=== PATIENT | female | born 1990 | race Asian ===

== ENCOUNTER 2017-08-25 18:26 | Emergency (ER) | payer OTHER ==
[2017-08-25] MEDS: ALBUTEROL SULFATE 2.5 MG/0.5 ML INH NEB SOLN NEB (22:02)
== END 2017-08-25 23:03 | disposition home or self-care (01) ==
LOC: M ED 18:26
DX: J06.9 Acute upper respiratory infection, unspecified (principal); Z87.891 Personal history of nicotine dependence
CPT/HCPCS: 71020

== ENCOUNTER 2017-12-22 20:13 | Inpatient (IN) | payer OTHER ==
[2017-12-22] MEDS: LR 1,000 ML IV (22:43)
[2017-12-22] MEDS: LACTATED RINGER'S 1000 ML IV (22:43)
[2017-12-22] MEDS ORDERED: FENTANYL 2MCG/ML ROPIVACAINE 0.2% IN 0.9% NACL 200ML IVBAG As Ordered (22:58)
[2017-12-22 23:00] LABS: HEMATOCRIT 38.1 % (36.0-47.0); HEMOGLOBIN 13.1 g/dl (12.0-15.5); MEAN CORPUSCULAR HEMOGLOBIN 28.9 pg (27.0-33.0); MEAN CORPUSCULAR HGB CONC 34.4 g/dl (32.0-36.5); MEAN CORPUSCULAR VOLUME 83.9 fl (80.0-96.0); PLATELET COUNT, AUTOMATED 224 10^3/uL (150-450); RED BLOOD COUNT 4.54 10^6/uL (4.00-5.40); RED CELL DISTRIBUTION WIDTH 13.3 % (11.5-14.5); WHITE BLOOD COUNT 14.8 10^3/uL (4.0-10.0)
[2017-12-22] MEDS ORDERED: OXYTOCIN 30 UNITS IN 0.9% NaCl 500ML IV BAG (J2590) As Ordered (23:25)
[2017-12-22] MEDS ORDERED: LACTATED RINGER'S 1000 ML IV (23:45)
[2017-12-22] MEDS ORDERED: ePHEDrine SULFATE 25 MG/5 ML(5MG/ML) SYRINGE IV (23:45)
[2017-12-22] MEDS ORDERED: REFRIGERATOR IV KEYS XX (23:45)
[2017-12-22] MEDS ORDERED: ONDANSETRON 4MG/2ML VIAL (J2405) IV (23:45)
[2017-12-22] MEDS ORDERED: FENTANYL/ROPIVACAINE/NACL BAG 200 ML EPIDURAL (23:45)
[2017-12-22] MEDS ORDERED: EPIDURAL COMMENT XX (23:45)
[2017-12-22] MEDS ORDERED: EPIDURAL/PCA KEYS XX (23:45)
[2017-12-22] MEDS ORDERED: NALOXONE INJ 0.4 MG/1 ML VIAL (J2310) IV (23:45)
[2017-12-23] MEDS: OXYTOCIN DRIP 30 UNITS in APPROPRIATE DILUENT 1 EA IV (01:23)
[2017-12-23] MEDS: diphenhydrAMINE INJ 50MG/ML VIAL (J1200) IV (01:25)
[2017-12-23] MEDS: LIDOCAINE 1% MDV 20ML VIAL INFIL (01:30)
[2017-12-23] MEDS ORDERED: LIDOCAINE 1% MDV 20ML VIAL INFIL (01:30)
[2017-12-23] MEDS ORDERED: DOCUSATE SODIUM 100 MG CAP PO (01:30)
[2017-12-23] MEDS: ACETAMINOPHEN 500 MG TAB PO (02:51)
[2017-12-23] MEDS: IBUPROFEN 800 MG TAB PO ×3 (02:51→20:51)
[2017-12-23] MEDS: DIBUCAINE 1% OINTMENT 30GM TOP (02:52)
[2017-12-23] MEDS: MEASLES,MUMPS,RUBELLA VACCINE INJ (MMR-II) (90707) SC (03:27)
[2017-12-23] MEDS: RHOGAM 300 MCG (1500 IU) INJ (J2790) IM (03:27)
[2017-12-23] MEDS: PRENATAL VITAMINS CHEWABLE TABLET PO (07:52)
[2017-12-23] MEDS: DOCUSATE SODIUM 100 MG CAP PO ×2 (10:04→20:52)
[2017-12-23] MEDS: PERCOCET 5MG/325MG TAB PO ×2 (10:04→17:18)
[2017-12-23] MEDS: MIRALAX *UNIT DOSE* 17GM PACKET PO (10:51)
[2017-12-24] MEDS: ACETAMINOPHEN 500 MG TAB PO (03:06)
[2017-12-24] MEDS: MIRALAX *UNIT DOSE* 17GM PACKET PO (08:04)
[2017-12-24] MEDS: PRENATAL VITAMINS CHEWABLE TABLET PO (08:04)
[2017-12-24] MEDS: DOCUSATE SODIUM 100 MG CAP PO ×2 (08:04→20:33)
[2017-12-24] MEDS: IBUPROFEN 800 MG TAB PO ×2 (08:05→17:26)
[2017-12-25] MEDS: ACETAMINOPHEN 500 MG TAB PO (00:22)
[2017-12-25] MEDS: IBUPROFEN 800 MG TAB PO (05:14)
[2017-12-25] MEDS: PRENATAL VITAMINS CHEWABLE TABLET PO (07:35)
[2017-12-25] MEDS: MIRALAX *UNIT DOSE* 17GM PACKET PO (07:35)
[2017-12-25] MEDS: DOCUSATE SODIUM 100 MG CAP PO (07:36)
== END 2017-12-25 12:55 | disposition home or self-care (01) | DRG 775 ==
LOC: M LDO 20:13 → M OBS 12-23 02:30 → M LDI 22:43
PROVIDERS: Obstetrics & Gynecology
PROC: 10E0XZZ Delivery of Products of Conception, External Approach (ICD-10-PCS; principal; 2017-12-23)
PROC: 0DQR0ZZ Repair Anal Sphincter, Open Approach (ICD-10-PCS; 2017-12-23)
DX: O69.81X0 Labor and delivery complicated by cord around neck, without compression, not applicable or unspecified (principal); O70.23 Third degree perineal laceration during delivery, IIIc; Z3A.37 37 weeks gestation of pregnancy; Z37.0 Single live birth